=== PATIENT | female | born 1995 | race Caucasian/White ===

== ENCOUNTER 2021-03-21 07:22 | Inpatient (IN) ==
[2021-03-21] MEDS ORDERED: OXYTOCIN 30 UNITS/500 ML BAG IV PRN ×3 (08:56→17:05)
--- NOTE | 2021-03-21 09:00 | History & Physical Report ---
Date of Service March 21, 2021 Assessment & Plan (1) Encounter for supervision of normal in multigravida: Admit to L&D, EFM/toco, labs, IV, covid swab per protocol. Pitocin. Discussed plan with patient - she is agreeable. Admission and Anticipated Discharge Date Admission Date: March 21, 2021 History of Present Illness Chief Complaint: IOL Primary Care Provider: Carlito Sherwood 26yo @ 40 03/23, IOL for postdates. Doing well, uncomplicated . Young bulb placed last night, still in place on arrival this morning. Allergies Allergy/AdvReac Type Severity Reaction Status Date / Time No Known Allergies Allergy Verified 03/20/21 14:54 Home Medications Medication Instructions Recorded Confirmed Type prenat.vits,nik,skk-lvhy-auxqd 1 tab PO DAILY 08/04/20 03/20/21 History Patient History Medical History Encounter for gynecological examination without abnormal finding Encounter for IUD removal Post-dates Unfavorable cervix in term Varicella vaccination Surgical History No pertinent past surgical history Family History Grandmother (Paternal) Diabetes Grandfather (Maternal) Diabetes Father Hypertension Denies family history of Ovarian cancer Breast cancer Colorectal cancer Uterine cancer Social History Smoking Status: Never smoker Second Hand Exposure: No; Hx Alcohol Use: Yes Hx Substance Use: No Preferred Language: Greenlandic marital status: Single marital status details: Alessio Alonzo (24) [phone] Current Living Situation: Family and Significant Other Current Living Situation Comment: lives with fob, daughter, dog, cat-fob changing litter current occupational status: employed current occupation: [employer] in [employer] Feels Safe at Home: Yes Review of Systems All systems reviewed & are unremarkable except as noted in HPI & below Physical Exam Physical Exam: SVE: young bulb in vagina. Cervix 4/70/-3. Cephalic by exam. FHT Cat 1 Arley rare Constitutional: WD/WN, vitals as above Respiratory: normal respiratory effort, lungs clear to auscultation no respiratory distress Cardiovascular: Rate/Rhythm: regular rate and regular rhythm Gastrointestinal (Abdomen): Inspection/Auscultation: abdomen normal to inspection Percussion/Palpation: abdomen soft; abdomen nontender Gravid. No s/s chorio or abruption. Skin: no rashes, warm and dry Psychiatric: A+Ox3, euthymic affect Results & Data ([facility]) Vital Signs (Past 12 Hours) Vital Signs Temp Pulse Resp BP 03/21/21 07:55 36.6 C 82 19 121/78 Coding Level of Care Code None Diagnoses Encounter for supervision of normal in multigravida Z34.80
[2021-03-21] MEDS: LACTATED RINGER'S 1,000 ML IV PRN ×2 (09:05→13:34)
[2021-03-21 09:36] LABS: Hematocrit (blood only) 37.9 % (37-47); Hemoglobin 12.8 g/dL (12.0-16.0); Mean Corpuscular Hgb Conc 33.8 g/dL (32-36); Mean Corpuscular Volume 91.8 fL (80-100); Mean Platelet Volume 11.7 fL (7.4-10.4); Platelet Count 152 K/uL (130-400); Red Blood Count 4.13 M/uL (4.2-5.4); White Blood Count 9.23 K/uL (4.8-10.8)
[2021-03-21] MEDS ORDERED: fentaNYL citrate 100 MCG/2 ML VIAL ONE (13:09)
[2021-03-21] MEDS ORDERED: BUPIVACAINE 0.25% 30 ML VIAL ONE (13:09)
[2021-03-21] MEDS ORDERED: SODIUM CHLORIDE 0.9% INJ 10 ML VIAL ONE (13:09)
[2021-03-21] MEDS ORDERED: ePHEDrine sulfate 50 MG/ML AMP ONE (13:09)
[2021-03-21] MEDS ORDERED: fentaNYL 2MCG/ML ROPIVACAINE 1.25MG/ML 100 ML BAG EPI ONE (13:10)
[2021-03-21] MEDS ORDERED: NALOXONE HCL 0.4 MG/1 ML VIAL/CARP IV PRN (13:23)
[2021-03-21] MEDS ORDERED: ePHEDrine sulfate 50 MG/ML AMP IV PRN (13:23)
[2021-03-21] MEDS ORDERED: fentaNYL 2MCG/ML ROPIVACAINE 1.25MG/ML 100 ML BAG EPI PRN (13:23)
[2021-03-21] MEDS ORDERED: ONDANSETRON INJ 2 MG/ML 2 ML VIAL IV PRN (13:23)
[2021-03-21] MEDS ORDERED: diphenhydrAMINE 50 MG/ML VIAL IV PRN (13:23)
[2021-03-21] MEDS ORDERED: NALOXONE HCL 1 MG in SODIUM CHLORIDE 0.9% 1000ML 1,000 ML IV PRN (13:23)
--- NOTE | 2021-03-21 13:40 | Anesthesiology Consultation ---
Date of Service March 21, 2021 Assessment & Plan (1) Encounter for pre-operative examination: Chart Review Chart Review: Patient NOT seen in Pre Admission Testing and Acceptable Risk for Labor Epidural Consults Requested none History Height/Weight Height: 5 ft 3 in Weight: 76.921 kg Allergies Allergy/AdvReac Type Severity Reaction Status Date / Time No Known Allergies Allergy Verified 03/20/21 14:54 Medications Home Medications Medication Instructions Recorded Confirmed Last Taken prenat.vits,nik,iuh-nhne-tdzvl 1 tab PO DAILY 08/04/20 03/20/21 03/19/21 21:00 Active Medications Generic Name Dose Route Start Last Admin Trade Name Freq PRN Reason Stop Dose Admin Oxytocin 30 units in 500 mls @ 9 mls/hr 03/21/21 08:56 03/21/21 11:36 Pitocin IV 03/23/21 08:55 0.54 units/hr .Q24H PRN 9 mls/hr Labor Induction/Augmentation Titration Protocol 0.54 UNITS/HR Lactated Ringer's 1,000 mls @ 125 mls/hr 03/21/21 08:56 03/21/21 13:15 Lr IV 03/23/21 08:55 999 mls/hr .Q8H PRN Infusion L&D Protocol Protocol Past Medical History Medical History Encounter for gynecological examination without abnormal finding Encounter for IUD removal Post-dates Unfavorable cervix in term Varicella vaccination Exercise / Class Metabolic Activity II 4-5 Yardwork/Stairs/Walk up hill Past Family History Family History Grandmother (Paternal) Diabetes Grandfather (Maternal) Diabetes Father Hypertension Denies family history of Ovarian cancer Breast cancer Colorectal cancer Uterine cancer Past Surgical History Surgical History No pertinent past surgical history Past Anesthesia History No Hx of Anesthesia Complications and No Family Hx of Anesthesia Complications History of PONV No Hx of PONV and No Hx of Motion Sickness Social History Smoking Status: Never smoker Hx Alcohol Use: Yes Hx Substance Use: No substance use type: does not use Physical Exam Vital Signs Last Vital Signs Temp 36.6 C 03/21/21 08:44 Pulse 77 03/21/21 13:38 Resp 19 03/21/21 08:44 BP 118/58 L 03/21/21 13:37 Pulse Ox 90 03/21/21 13:38 Testing Laboratory Results 03/21/21 09:23
--- NOTE | 2021-03-21 16:46 | Delivery Summary ---
Vaginal Delivery Summary Date of Service March 21, 2021 Vaginal Delivery Summary [facility] Vaginal Delivery Summary: Pre-delivery diagnoses: 26yo @ 40 03/23, IOL for postdates Post-delivery diagnoses: same Procedure: spontaneous vaginal delivery Surgeon: Genesis Ceballos DO Complications: none Findings: Viable female . Apgars: 8/9 . Weight pending, please see nursery records Estimated blood loss: 300ml Description of delivery: The patient progressed to complete with epidural anesthesia. She then began to push. She spontaneously vaginally delivered a viable from the cephalic presentation. The head delivered in KEEGAN position. Nuchal cord x 2, easily reduced. True knot in umbilical cord. The anterior shoulder delivered, followed by the posterior shoulder, followed by the body. The baby was placed on mother's abdomen and a spontaneous cry was heard. Delayed cord clamping was employed, and the cord was doubly clamped and cut. Cord blood was obtained. The placenta was delivered spontaneously intact with a 3-vessel cord. The uterus and vagina were swept of clots and debris. IV pitocin was given. The uterus became firm. The cervix, vagina, and perineum were inspected and no lacerations were noted. Excellent hemostasis was observ ed. The mother and baby are recovering in stable and good condition in the room. Sponge and instrument counts were correct x 2. Genesis Ceballos DO [facility] [place] Vaginal Delivery Charge Vaginal Delivery Codes: 99221 global code for the antepartum, delivery, and post- Delivery Type Details: [facility]
[2021-03-21] MEDS ORDERED: DIPHTHERIA/TETANUS/PERTUSSIS 0.5 ML SYR/VIAL IM ONE (17:05)
[2021-03-21] MEDS ORDERED: bisacodyL 10 MG SUPP PR PRN (17:05)
[2021-03-21] MEDS ORDERED: ACETAMINOPHEN 325 MG TAB PO PRN (17:05)
[2021-03-21] MEDS ORDERED: BENZOCAINE 20% AER SPR 82.5 GM CAN EXT PRN (17:05)
[2021-03-21] MEDS ORDERED: oxyCODONE/ACETAMINOPHEN 5mg/325mg TAB PO PRN (17:05)
[2021-03-21] MEDS ORDERED: SUPERCREAM 0.870% 15 GM JAR EXT PRN (17:05)
[2021-03-21] MEDS ORDERED: HYDROCORTISONE ACETATE 25 MG SUPP PR PRN (17:05)
--- NOTE | 2021-03-21 17:26 | Anesthesia Procedure Note ---
Date of Service March 21, 2021 Anesthesia Post Epidural Note Vital Signs Vital Signs: Temp Pulse Resp BP Pulse Ox 36.6 C 75 16 114/67 92 03/21/21 15:21 03/21/21 17:14 03/21/21 15:21 03/21/21 17:14 03/21/21 16:33 Notes Mental Status: alert / awake / arousable and participated in evaluation Patient Amnestic to Procedure: Yes Nausea / Vomiting: adequately controlled Pain: adequately controlled Airway Patency, RR, SpO2: stable & adequate BP & HR: stable & adequate Hydration State: stable & adequate Neuraxial Anesthesia: was administered and sensory block is resolving Anesthetic Complications: no major complications apparent and Pt Satisfied with anesthetic care Epidural: Removed without complications and With tip intact
[2021-03-21] MEDS: DOCUSATE SODIUM 100 MG CAP PO SCH (20:52)
[2021-03-21] MEDS: IBUPROFEN 600 MG TAB PO PRN (23:47)
[2021-03-22] MEDS: IBUPROFEN 600 MG TAB PO PRN (05:48)
[2021-03-22 06:22] LABS: Hematocrit (blood only) 37.8 % (37-47); Hemoglobin 12.7 g/dL (12.0-16.0)
--- NOTE | 2021-03-22 06:50 | Obstetrical Progress Note ---
Date of Service <Vaibhav Riddle MD - Last Filed: 03/22/21 06:50> March 22, 2021 Assessment & Plan <Vaibhav Riddle MD - Last Filed: 03/22/21 06:50> (1) Encounter for supervision of normal in multigravida: A/P: Patient is a 26yo female on PPD#1 following IOL at 40+5wga. * Patient feels well today; eating well, voiding well, ambulating well * Pain well-controlled with ibuprofen 600mg q4h prn * PNL: Rh pos, RI, GBS neg, COVID neg * Routine care: OOB, ambulation, diet progression as tolerated * After discharge, will have six-week follow-up with Dr. Ceballos Subjective <Vaibhav Riddle MD - Last Filed: 03/22/21 06:50> Patient is a 26yo female on PPD#1 following IOL at 40+5wga. This morning, patient feels well overall. Reports mild, crampy abdominal pain well- managed on analgesics. Tolerating PO intake without nausea or vomiting. Patient has been able to ambulate without lightheadedness or dizziness. Voiding well without difficulty. Lochia is gradually improving over time. Patient is . Review of Systems Denies fever, chills, CP, SOB, cough, breast pain, dysuria, leg pain, leg swelling, headache, and changes in vision. Physical Exam <Vaibhav Riddle MD - Last Filed: 03/22/21 06:50> General: alert, oriented, no acute distress Cardiac: regular rate and rhythm, no murmur appreciated Respiratory: lungs clear to auscultation bilaterally a/p, no wheezes/rales/rhonchi, no increased work of breathing, symmetrical chest rise, no respiratory distress Abd: normal gravid abdomen, soft, minimally tender, BS present : uterine fundus firm, palpable at umbilicus LE: no lower extremity edema bilaterally; no deep calf pain, Carmella's negative bi laterally Results & Data ([facility]) <Vaibhav Riddle MD - Last Filed: 03/22/21 06:50> Vital Signs (Past 12 Hours) Vital Signs Temp Pulse Resp BP Pulse Ox 03/22/21 03:00 36.5 C 69 20 113/74 98 03/21/21 23:45 36.8 C 75 20 106/66 96 03/21/21 19:30 36.7 C 86 18 127/77 97 <Genesis Ceballos DO - Last Filed: 03/22/21 08:22> Co-Signing Physician Notes Resident Physician Supervision Note: I was present with Dr. Riddle during the history and exam. I discussed the case with the resident and agree with the findings and plan as documented in the note. Any exceptions or clarifications are listed here: PPD#1 doing well. Anticipate DC home tomorrow. Documented By: Genesis Ceballos DO Resident Activity Tracking <Vaibhav Riddle MD - Last Filed: 03/22/21 06:50> Resident Involvement: Resident Care Provided Care Provided: OB Delivery
[2021-03-22] MEDS ORDERED: PRENATAL VITAMIN 1 TAB PO SCH (08:00)
[2021-03-22] MEDS: DOCUSATE SODIUM 100 MG CAP PO SCH (09:34)
[2021-03-22] MEDS ORDERED: bisacodyL 5 MG TABEC PO SCH (20:00)
== END 2021-03-22 17:10 | disposition home or self-care (01) | DRG 807 ==
LOC: 4S1 07:37 → 4S2 19:20

== ENCOUNTER 2024-09-15 14:59 | Inpatient (IN) ==
[2024-09-15] MEDS ORDERED: LIDOCAINE 1% LOCAL 20 ML VIAL INFIL PRN (15:08)
[2024-09-15] MEDS ORDERED: CALCIUM CARBONATE 500 MG CHEWABLE TAB PO PRN (15:08)
[2024-09-15] MEDS ORDERED: OXYTOCIN 30 UNITS/NSS 30 UNITS/500 ML BAG IV PRN (15:08)
--- NOTE | 2024-09-15 15:12 | History & Physical Report ---
Date of Service September 15, 2024 Assessment & Plan (1) 39 weeks gestation of : (2) Encounter for induction of labor: Plan admit, iv, labs. fhts categ 1, arom/pit. pt agreeable. epidural when desires. Admission and Anticipated Discharge Date Admission Date: September 15, 2024 History of Present Illness Chief Complaint: desires elective induction Primary Care Provider: Carlito Sherwood 29yo at 39 wks ega presents to LD for above cc. She denies rom, vb. +FM. No ctx. PNC uncomplicated. RH pos RI, GBS neg OBH: x 2 GYNH: nl paps no stds. Allergies Allergy/AdvReac Type Severity Reaction Status Date / Time No Known Allergies Allergy Verified 09/15/24 15:16 Home Medications Medication Instructions Recorded Confirmed Type loratadine [Claritin] 1 tab PO DAILY PRN Sinus Symptoms 02/02/24 09/15/24 History vit no.846-yoov-blaxi 1 tab PO DAILY 02/02/24 09/15/24 History [Classic ] Patient History Medical History Seasonal allergies External hemorrhoids Encounter for pre-operative examination Varicella vaccination Encounter for gynecological examination without abnormal finding Encounter for IUD removal Surgical History No pertinent past surgical history Family History Grandmother (Paternal) Diabetes Grandfather (Maternal) Diabetes Father Hypertension Muscular dystrophy non-genetic form per patient Denies family history of Ovarian cancer Breast cancer Colorectal cancer Uterine cancer Social History Smoking Status: Never smoker Second Hand Exposure: No; Do You Dip or Chew Tobacco: No; Hx Alcohol Use: No Hx Substance Use: No Preferred Language: Ukrainian Button Tacker Required: No Beliefs That Will Affect Care: None marital status: marital status details: Alessio Clinton (28) [phone] Current Living Situation: Spouse and Family Current Living Situation Comment: lives with spouse,2 children, step daughter, dog, cat-spousechanging litter current occupational status: other current occupation: homemaker Feels Safe at Home: Yes Safety Concerns: Feels Safe At This Time Assistive Devices: None Review of Systems as per Subjective / HPI Physical Exam Constitutional: WD/WN, vitals as above Respiratory: normal respiratory effort, lungs clear to auscultation Cardiovascular: Rate/Rhythm: regular rate and regular rhythm Gastrointestinal (Abdomen): soft gravid nt efw 7.5# Musculoskeletal: no edema nontender calves Neurologic: grossly normal Psychiatric: A+Ox3, euthymic affect Genitourinary: Manual OB Exam: + cervical dilation (1+), + cervical effacement 50%, + station (mid medium) -2 and + amniotic fluid (arom) clear OB Exam Monitor Tracing: + external FHT monitor used, + external uterine monitor used (no ctx), + category I and + normal FHT variability Coding Level of Care Code None Diagnoses 39 weeks gestation of Z3A.39 Encounter for induction of labor Z34.90
[2024-09-15] MEDS: LACTATED RINGER'S 1,000 ML IV SCH (15:50)
[2024-09-15] MEDS: OXYTOCIN 30 UNITS/NSS 30 UNITS/500 ML BAG IV PRN (15:50)
[2024-09-15 15:56] LABS: Hematocrit (blood only) 35.3 % (37.0-47.0); Hemoglobin 12.1 g/dl (12.0-16.0); Mean Corpuscular Hemoglobin 30.8 pg (25.0-34.0); Mean Corpuscular Hgb Conc 34.3 g/dL (32.0-36.0); Mean Corpuscular Volume 89.8 fL (80.0-100.0); Mean Platelet Volume 12.1 fL (9.4-12.4); Platelet Count 156 K/uL (130-400); RDW Coefficient of Variation 12.9 % (11.5-14.5); RDW Standard Deviation 41.9 fL (36.4-46.3); Red Blood Count 3.93 M/uL (4.20-5.40); White Blood Count 8.69 K/ul (4.8-10.8)
[2024-09-15] MEDS ORDERED: fentANYL 2 MCG/ML BUPIVacaine 0.125%-NSS 100ML BAG EPI PRN (18:06)
[2024-09-15] MEDS ORDERED: fentaNYL citrate PF 100 MCG/2 ML VIAL EPI PRN (18:06)
[2024-09-15] MEDS ORDERED: ONDANSETRON INJ 2 MG/ML 2 ML VIAL IV PRN (18:06)
[2024-09-15] MEDS ORDERED: SODIUM CHLORIDE 0.9% PF INJ 10 ML VIAL EPI PRN (18:06)
[2024-09-15] MEDS ORDERED: LIDOCAINE 2% MPF LOCAL 5 ML VIAL EPI PRN (18:06)
[2024-09-15] MEDS ORDERED: NALOXONE HCL 0.4 MG/1 ML VIAL/CARP IV PRN (18:06)
[2024-09-15] MEDS ORDERED: NALOXONE HCL 1 MG in SODIUM CHLORIDE 0.9% 1,000 ML IV PRN (18:06)
[2024-09-15] MEDS ORDERED: ROPIVACAINE 0.5% PF 5 MG/ML 20 ML VIAL EPI PRN (18:06)
[2024-09-15] MEDS ORDERED: NALBUPHINE HCL INJ 10 MG/ML AMP IV PRN (18:06)
[2024-09-15] MEDS ORDERED: ePHEDrine sulfate 50 MG/ML AMP IV PRN (18:06)
[2024-09-15] MEDS ORDERED: diphenhydrAMINE 50 MG/ML VIAL IV PRN (18:06)
[2024-09-15] MEDS ORDERED: BUPIVACAINE 0.25% PF 30 ML VIAL EPI PRN (18:06)
--- NOTE | 2024-09-15 18:06 | Anesthesiology Consultation ---
Date of Service September 15, 2024 Assessment & Plan Chart Review Chart Review: Acceptable Risk for Surgery and Patient NOT seen in Pre Admission Testing ASA ASA2 Proposed Anesthesia Anesthesia Type: Labor Epidural Risk / Benefits Reviewed With: PT / POA / Parent / Guardian, Accepts Plan and Informed Consent Obtained History Height/Weight Height: 5 ft 3 in Weight: 80.385 kg Allergies Allergy/AdvReac Type Severity Reaction Status Date / Time No Known Allergies Allergy Verified 09/15/24 15:16 Medications Home Medications Medication Instructions Recorded Confirmed Last Taken loratadine [Claritin] 1 tab PO DAILY PRN Sinus Symptoms 02/02/24 09/15/24 Unknown vit no.[id number]-muioi 1 tab PO DAILY 02/02/24 09/15/24 09/14/24 21:00 [Classic ] Active Medications Generic Name Dose Route Start Last Admin Trade Name Freq PRN Reason Stop Dose Admin Oxytocin 30 units in 500 mls @ 11 mls/hr 09/15/24 15:08 09/15/24 18:30 Pitocin 30 Units/Nss IV 09/17/24 15:07 0.66 units/hr .Q24H PRN 11 mls/hr Labor Induction/Augmentation Titration Protocol 0.66 UNITS/HR Lactated Ringer's 1,000 mls @ 50 mls/hr 09/15/24 17:15 09/15/24 18:00 Lr IV 09/16/24 17:14 999 mls/hr .Q20H BULL Titration Past Medical History Medical History Seasonal allergies External hemorrhoids Encounter for pre-operative examination Varicella vaccination Encounter for gynecological examination without abnormal finding Encounter for IUD removal Exercise / Class Metabolic Activity II 4-5 Yardwork/Stairs/Walk up hill Past Family History Family History Grandmother (Paternal) Diabetes Grandfather (Maternal) Diabetes Father Hypertension Muscular dystrophy non-genetic form per patient Denies family history of Ovarian cancer Breast cancer Colorectal cancer Uterine cancer Past Surgical History Surgical History No pertinent past surgical history Past Anesthesia History No Hx of Anesthesia Complications and No Family Hx of Anesthesia Complications History of PONV No Hx of PONV and No Hx of Motion Sickness Social History Smoking Status: Never smoker Do You Dip or Chew Tobacco: No Hx Alcohol Use: No Hx Substance Use: No substance use type: does not use Review of Systems denies fever/cough/ colds/ chest pain/ SOB/ ROSSY denies ROSSY Physical Exam Vital Signs Last Vital Signs Temp 36.9 C 09/15/24 16:51 Pulse 95 H 09/15/24 18:35 Resp 16 09/15/24 16:51 BP 115/63 09/15/24 18:35 Pulse Ox 96 09/15/24 18:35 ENMT Mouth: no TMJ abnormality and no dentition abnormality Thyromental Distance: > or= 3.5 Finger Breadths Mallampati Class: II Neck neck extension not limited Respiratory normal respiratory effort; no respiratory distress Auscultation: lungs clear to auscultation bilaterally Cardiovascular Rate/Rhythm: regular rate and regular rhythm Neurologic moves all extremities Psychiatric Orientation: alert and oriented x 3 Testing Laboratory Results 09/15/24 15:25
[2024-09-15] MEDS: LIDOCAINE 2%/EPINEPHRINE 1:200,000 20 ML PF ONE (18:34)
[2024-09-15] MEDS: BUPIVACAINE 0.25% PF 30 ML VIAL ONE (18:34)
[2024-09-15] MEDS: fentaNYL citrate PF 100 MCG/2 ML VIAL ONE (18:34)
[2024-09-15] MEDS: fentANYL 2 MCG/ML BUPIVacaine 0.125%-NSS 100ML BAG ONE (18:35)
[2024-09-15] MEDS: SODIUM CHLORIDE 0.9% PF INJ 10 ML VIAL EPI STA (18:45)
[2024-09-15] MEDS: fentaNYL citrate PF 100 MCG/2 ML VIAL EPI STA (18:46)
[2024-09-15] MEDS: LIDOCAINE 2%/EPINEPHRINE 1:200,000 20 ML PF EPI STA (18:46)
[2024-09-15] MEDS: ePHEDrine sulfate 50 MG/ML AMP ONE (18:46)
[2024-09-15] MEDS: BUPIVACAINE 0.25% PF 30 ML VIAL EPI STA (18:46)
[2024-09-15] MEDS: SODIUM CHLORIDE 0.9% PF INJ 10 ML VIAL ONE (18:46)
--- NOTE | 2024-09-15 20:08 | Labor Progress Brief Note ---
Date of Service September 15, 2024 Subjective pt comfortable with epidural. Assessment & Plan (1) 39 weeks gestation of : (2) Encounter for induction of labor: Plan some cx change. c/w pit. fhts categ 1. Admission and Anticipated Discharge Date Admission Date: September 15, 2024 Physical Exam Constitutional: WD/WN, vitals as above Genitourinary: Manual OB Exam: + cervical dilation (2-3cm), + cervical effacement (75%) and + station -2 OB Exam Monitor Tracing: + external FHT monitor used, + external uterine monitor used (q3 pit at 13), + category I and + normal FHT variability Results & Data Vital Signs (Past 12 Hours) Vital Signs Temp Pulse Resp BP Pulse Ox 09/15/24 20:05 100 09/15/24 20:05 81 09/15/24 20:00 100 09/15/24 20:00 148 H 09/15/24 19:58 89 09/15/24 19:58 130/73 09/15/24 19:55 100 09/15/24 19:55 88 09/15/24 19:50 100 09/15/24 19:50 84 09/15/24 19:45 99 09/15/24 19:45 106 H 09/15/24 19:42 85 09/15/24 19:42 103/59 L 09/15/24 19:40 97 09/15/24 19:40 87 09/15/24 19:35 99 09/15/24 19:35 83 09/15/24 19:30 99 09/15/24 19:30 84 09/15/24 19:28 82 09/15/24 19:28 107/56 L 09/15/24 19:25 96 09/15/24 19:25 95 H 09/15/24 19:20 100 09/15/24 19:20 102 H 09/15/24 19:15 98 09/15/24 19:15 84 09/15/24 19:11 120 H 09/15/24 19:11 102/56 L 09/15/24 19:10 100 09/15/24 19:10 120 H 09/15/24 19:05 97 09/15/24 19:05 88 09/15/24 19:00 97.9 F 18 09/15/24 19:00 96 09/15/24 19:00 93 H 09/15/24 18:57 85 09/15/24 18:57 109/64 09/15/24 18:55 95 09/15/24 18:55 120 H 09/15/24 18:50 96 09/15/24 18:50 96 H 09/15/24 18:46 93 09/15/24 18:46 92 H 09/15/24 18:45 96 09/15/24 18:45 93 H 09/15/24 18:40 18 09/15/24 18:40 98.1 F 18 09/15/24 18:40 95 09/15/24 18:40 98 H 09/15/24 18:40 113/63 09/15/24 18:35 96 09/15/24 18:35 95 H 09/15/24 18:35 115/63 09/15/24 18:34 94 09/15/24 18:34 85 09/15/24 18:34 116/62 09/15/24 18:30 96 09/15/24 18:30 84 09/15/24 18:30 121/70 09/15/24 18:25 100 09/15/24 18:25 78 09/15/24 18:25 129/70 09/15/24 18:20 100 09/15/24 18:20 82 09/15/24 18:15 97 09/15/24 18:15 92 H 09/15/24 18:10 98 09/15/24 18:10 73 09/15/24 17:19 75 09/15/24 17:19 130/77 09/15/24 16:51 16 09/15/24 16:51 98.4 F 16 09/15/24 16:09 88 09/15/24 16:09 122/71 09/15/24 15:20 88 18 132/79 09/15/24 15:13 88 132/79 09/15/24 15:12 18 09/15/24 15:12 98.6 F 18 Coding Level of Care Code None Diagnoses 39 weeks gestation of Z3A.39 Encounter for induction of labor Z34.90
--- NOTE | 2024-09-15 22:42 | Labor Progress Brief Note ---
Date of Service September 15, 2024 Subjective comfortable, more pressure Assessment & Plan (1) 39 weeks gestation of : (2) Encounter for induction of labor: Plan making change in labor. c/w pit. fhts categ 1. Admission and Anticipated Discharge Date Admission Date: September 15, 2024 Physical Exam Constitutional: WD/WN, vitals as above Genitourinary: Manual OB Exam: + cervical dilation 4 cm, + cervical effacement 80% and + station -1 OB Exam Monitor Tracing: + external FHT monitor used, + external uterine monitor used (q2-3 pit at 15), + category I and + normal FHT variability Results & Data Vital Signs (Past 12 Hours) Vital Signs Temp Pulse Resp BP Pulse Ox 09/15/24 22:39 98.2 F 18 09/15/24 22:35 97 09/15/24 22:35 90 09/15/24 22:30 94 09/15/24 22:30 90 09/15/24 22:26 84 09/15/24 22:26 101/57 L 09/15/24 22:25 94 09/15/24 22:25 86 09/15/24 22:20 94 09/15/24 22:20 88 09/15/24 22:15 96 09/15/24 22:15 89 09/15/24 22:12 89 09/15/24 22:12 107/58 L 09/15/24 22:10 95 09/15/24 22:10 93 H 09/15/24 22:05 95 09/15/24 22:05 91 H 09/15/24 22:00 95 09/15/24 22:00 89 09/15/24 21:56 90 09/15/24 21:56 105/64 09/15/24 21:55 95 09/15/24 21:55 86 09/15/24 21:50 95 09/15/24 21:50 91 H 09/15/24 21:45 93 09/15/24 21:45 85 09/15/24 21:41 89 09/15/24 21:41 105/61 09/15/24 21:40 95 09/15/24 21:40 85 09/15/24 21:35 97 09/15/24 21:35 99 H 09/15/24 21:30 98.2 F 18 09/15/24 21:30 96 09/15/24 21:30 86 09/15/24 21:27 98 H 09/15/24 21:27 114/61 09/15/24 21:25 97 09/15/24 21:25 86 09/15/24 21:20 94 09/15/24 21:20 91 H 09/15/24 21:15 95 09/15/24 21:15 83 09/15/24 21:11 90 09/15/24 21:11 104/57 L 09/15/24 21:10 94 09/15/24 21:10 82 09/15/24 21:05 95 09/15/24 21:05 85 09/15/24 21:00 94 09/15/24 21:00 83 09/15/24 20:56 83 09/15/24 20:56 105/58 L 09/15/24 20:55 94 09/15/24 20:55 83 09/15/24 20:50 95 09/15/24 20:50 81 09/15/24 20:45 96 09/15/24 20:45 81 09/15/24 20:44 80 09/15/24 20:44 112/62 09/15/24 20:40 97 09/15/24 20:40 78 09/15/24 20:35 96 09/15/24 20:35 79 09/15/24 20:30 95 09/15/24 20:30 83 09/15/24 20:27 95 H 09/15/24 20:27 92/63 L 09/15/24 20:25 98 09/15/24 20:25 92 H 09/15/24 20:20 98 09/15/24 20:20 89 09/15/24 20:15 97 09/15/24 20:15 83 09/15/24 20:11 86 09/15/24 20:11 107/63 09/15/24 20:10 98 09/15/24 20:10 82 09/15/24 20:05 100 09/15/24 20:05 81 09/15/24 20:00 100 09/15/24 20:00 148 H 09/15/24 19:58 89 09/15/24 19:58 130/73 09/15/24 19:55 100 09/15/24 19:55 88 09/15/24 19:50 100 09/15/24 19:50 84 09/15/24 19:45 99 09/15/24 19:45 106 H 09/15/24 19:42 85 09/15/24 19:42 103/59 L 09/15/24 19:40 97 09/15/24 19:40 87 09/15/24 19:35 99 09/15/24 19:35 83 09/15/24 19:30 99 09/15/24 19:30 84 09/15/24 19:28 82 09/15/24 19:28 107/56 L 09/15/24 19:25 96 09/15/24 19:25 95 H 09/15/24 19:20 100 09/15/24 19:20 102 H 09/15/24 19:15 98 09/15/24 19:15 84 09/15/24 19:11 120 H 09/15/24 19:11 102/56 L 09/15/24 19:10 100 09/15/24 19:10 120 H 09/15/24 19:05 97 09/15/24 19:05 88 09/15/24 19:00 97.9 F 18 09/15/24 19:00 96 09/15/24 19:00 93 H 09/15/24 18:57 85 09/15/24 18:57 109/64 09/15/24 18:55 95 09/15/24 18:55 120 H 09/15/24 18:50 96 09/15/24 18:50 96 H 09/15/24 18:46 93 09/15/24 18:46 92 H 09/15/24 18:45 96 09/15/24 18:45 93 H 09/15/24 18:40 18 09/15/24 18:40 98.1 F 18 09/15/24 18:40 95 09/15/24 18:40 98 H 09/15/24 18:40 113/63 09/15/24 18:35 96 09/15/24 18:35 95 H 09/15/24 18:35 115/63 09/15/24 18:34 94 09/15/24 18:34 85 09/15/24 18:34 116/62 09/15/24 18:30 96 09/15/24 18:30 84 09/15/24 18:30 121/70 09/15/24 18:25 100 09/15/24 18:25 78 09/15/24 18:25 129/70 09/15/24 18:20 100 09/15/24 18:20 82 09/15/24 18:15 97 09/15/24 18:15 92 H 09/15/24 18:10 98 09/15/24 18:10 73 09/15/24 17:19 75 09/15/24 17:19 130/77 09/15/24 16:51 16 09/15/24 16:51 98.4 F 16 09/15/24 16:09 88 09/15/24 16:09 122/71 09/15/24 15:20 88 18 132/79 09/15/24 15:13 88 132/79 09/15/24 15:12 18 09/15/24 15:12 98.6 F 18 Coding Level of Care Code None Diagnoses 39 weeks gestation of Z3A.39 Encounter for induction of labor Z34.90
--- NOTE | 2024-09-16 00:13 | Delivery Summary ---
Vaginal Delivery Summary Date of Service September 16, 2024 Vaginal Delivery Summary The patient dilated to complete and pushed to deliver a viable female infant Apgars 8 and 9 via over intact perineum. Mouth and nose bulb suctioned at perineum. Shoulders and body delivered with ease. was vigorous and crying at . Cord clamped at 30 seconds of life and infant to maternal abdomen where the cord was then doubly clamped and cut. Placenta delivered spontaneously and intact, three-vessel cord. Hemostasis achieved with dilute pitocin and uterine massage. Cervix and sulci intact. QBL 75 cc. Mother and baby stable in recovery. [facility] Vaginal Delivery Charge Delivery Type Details:
[2024-09-16] MEDS ORDERED: HYDROCORTISONE ACETATE 25 MG SUPP PR PRN (03:22)
[2024-09-16] MEDS ORDERED: OXYTOCIN 30 UNITS/NSS 30 UNITS/500 ML BAG IV PRN (03:22)
[2024-09-16] MEDS ORDERED: DIPHTHER/TETAN/PERTUS Vaccine (Tdap, Adol/Adult) 0.5mL IM ONE (03:22)
[2024-09-16] MEDS ORDERED: oxyCODONE/ACETAMINOPHEN 5mg/325mg TAB PO PRN (03:22)
[2024-09-16] MEDS: ACETAMINOPHEN 325 MG TAB PO PRN (06:22)
--- NOTE | 2024-09-16 07:40 | Anesthesia Procedure Note ---
Date of Service September 16, 2024 Anesthesia Post Epidural Note Vital Signs Vital Signs: Temp Pulse Resp BP Pulse Ox O2 Del Method 36.9 C 96 H 16 113/73 96 Room Air 09/16/24 03:15 09/16/24 03:15 09/16/24 03:15 09/16/24 03:15 09/16/24 03:15 09/16/24 03:15 Notes Mental Status: alert / awake / arousable and participated in evaluation Nausea / Vomiting: adequately controlled Pain: adequately controlled Airway Patency, RR, SpO2: stable & adequate BP & HR: stable & adequate Hydration State: stable & adequate Neuraxial Anesthesia: was administered and sensory block is resolving Anesthetic Complications: no major complications apparent Epidural: Removed without complications and With tip intact
[2024-09-16] MEDS: DOCUSATE SODIUM 100 MG CAP PO SCH (08:53)
[2024-09-16] MEDS: BENZOCAINE 20% SPRY 85 APPLN/85 GM CAN EXT PRN (08:53)
[2024-09-16] MEDS: PRENATAL VITAMIN 1 TAB PO SCH (08:53)
[2024-09-16] MEDS ORDERED: INFLUENZA VACC TS2024-25(6m+)/PF (IIV3) 0.5mL Syr IM ONE (15:41)
[2024-09-16] MEDS: IBUPROFEN 600 MG TAB PO PRN (16:39)
[2024-09-16] MEDS: INFLUENZA VACC TS2024-25(6m+)/PF (IIV3) 0.5mL Syr IM ONE (18:24)
[2024-09-17 01:06] VITALS: O2SAT 97
--- NOTE | 2024-09-17 07:17 | Obstetrical Progress Note ---
Date of Service September 17, 2024 Assessment & Plan (1) 39 weeks gestation of : day #2 the patient is doing well ambulating no extremity pain she has no depression plan discharge today instructions reviewed Subjective Ambulation: ambulating normally Voiding: no voiding problems Passing Gas:: Yes Diet Tolerance:: regular diet Lochia:: Small Physical Exam Constitutional WD/WN, vitals as above well developed and well nourished Respiratory normal respiratory effort, lungs clear to auscultation normal respiratory effort Cardiovascular RRR, no murmur, no edema Gastrointestinal (Abdomen) normal bowel sounds, soft, nontender, no hepatosplenomegaly Results & Data Vital Signs (Past 12 Hours) Vital Signs Temp Pulse Resp BP Pulse Ox O2 Del Method 09/17/24 00:10 97.7 F 68 16 111/71 97 Room Air
[2024-09-17 08:06] VITALS: BP 109/70; RESP 18; TEMP 97.9
[2024-09-17 08:09] VITALS: PULSE 77
[2024-09-17] MEDS ORDERED: bisacodyL 5 MG TABEC PO SCH (20:00)
== END 2024-09-17 09:55 | disposition home or self-care (01) | DRG 807 ==
LOC: 4S1 14:59 → 4E2 09-16 03:51